=== PATIENT | female | born 1930 | race Caucasian/White ===

== ENCOUNTER 2016-12-18 11:24 | Emergency (ER) | payer MEDICARE, OTHER ==
[~2016-12-18] VITALS: Ht 170.2 cm; Wt 65.0 kg
[~2016-12-18 11:24] MED LIST: ASPI-664 PO; DEXL60CA2 PO; LORA-441 PO; MECL-77 PO; MEGE20TA6 PO; SOLI5TAB5 PO
[2016-12-18 11:36] VITALS: Ht 170.2 cm; Wt 65.0 kg
--- NOTE | 2016-12-18 11:51 | ERA ---
ER Documentation Chief Complaint Date/Time DATE: 12/18/16 TIME: 11:40 Chief Complaint RIGHT WRIST PAIN/DEFORMITY S/P FALL. HPI This is a 86-year-old female with a past medical history of vertigo, high cholesterol and chronic sciatic low back pain, on an aspirin daily who is presenting after a mechanical fall. The patient was in her home when she lost her balance. She fell forward and she did hit the top of her head against the wall. She reports that she does not feel like she hit her head very hard. Most of the impact was against her right arm and wrist. She hit the wrist against the wall and ultimately landed on an outstretched hand. She has a right distal forearm deformity. She endorses tingling to the fingertips, but her sensation is intact. She has feeling to all of her fingers. She is able to move all of her fingers, though it is painful. Her pulses intact. Her fingers are not cold or pale. The patient does not endorse any other injuries. She did feel nauseated immediately after the fall, but this has subsided. The patient did not black out before or after the fall. Patient not been sick recently. She denies any fever or chills. She denies any headache or vision changes. She does not feel dizzy or lightheaded or like the room is spinning at this time. She is not nauseated presently. She denies any neck pain. She does not have any new back pain. She reports that her lower back actually feels okay right now, while she is not moving, which is standard for her. Other than the tingling to the right hand, she denies any other weakness or numbness or tingling to the face or extremities. She is not incontinent of urine or stool. The patient does endorse chronic constipation with mild abdominal discomfort presently. She has no saddle anesthesia. ROS All systems reviewed and are negative except as per history of present illness. Medications Home Meds Reported Medications Atorvastatin Calcium* (Atorvastatin Calcium*) 20 Mg Tablet, 20 MG PO QHS, #30 TAB 12/18/16 Alendronate Sodium* (Fosamax*) 70 Mg Tablet, 70 MG PO Q7D, #4 TAB 12/18/16 Gabapentin* (Gabapentin*) 300 Mg Capsule, 300 MG PO QHS, #60 CAP 12/18/16 Cholecalciferol* (Vitamin D3*) 1,000 Unit Tablet, 1000 UNIT PO DAILY, TAB 12/18/16 Celecoxib* (Celebrex*) 200 Mg Capsule, 200 MG PO DAILY, CAP 12/18/16 Propranolol Hcl* (Propranolol Hcl*) 20 Mg Tablet, 20 MG PO DAILY, #30 12/18/16 Solifenacin* (Vesicare*) 5 Mg Tablet, 5 MG PO DAILY 08/03/13 Meclizine Hcl* (Meclizine Hcl*) 25 Mg Tablet, 25 MG PO DAILY 08/03/13 Dexlansoprazole (Dexilant) 60 Mg Cap.mp, 60 MG PO DAILY 08/03/13 Lorazepam* (Ativan*) 0.5 Mg Tablet, 0.5 MG PO DAILY 08/03/13 Megestrol Acetate* (Megestrol Acetate*) 20 Mg Tablet, 20 MG PO DAILY 08/03/13 Aspirin (Aspirin) 81 Mg Tablet., 81 MG PO DAILY 08/03/13 Allergies Allergies: Coded Allergies: No Known Allergy (Unverified , 08/03/13) PMhx/Soc History of Surgery: No Anesthesia Reaction: No Hx Neurological Disorder: No Hx Respiratory Disorders: No Hx Cardiac Disorders: Yes (HLD) Hx Psychiatric Problems: No Hx Miscellaneous Medical Probl: Yes (Vertigo, sciatic lumbar back pain, previous left wrist fracture) Hx Alcohol Use: No Hx Substance Use: No Hx Tobacco Use: No Smoking Status: Never smoker FmHx Family History: No coronary disease, No diabetes Physical Exam Vitals Vital Signs Date Time Temp Pulse Resp B/P Pulse Ox O2 Delivery O2 Flow Rate FiO2 12/18/16 15:47 98.0 76 17 135/69 100 Room Air 12/18/16 13:00 78 16 128/63 98 Room Air 12/18/16 11:36 97.7 70 19 121/65 99 Physical Exam Const: Thin but well nourished, Well developed Head: Atraumatic Eyes: Normal Conjunctiva ENT: Normal External Ears, Nose. dry mucous membranes. Neck: Full range of motion..~ No meningismus. Resp: Clear to auscultation bilaterally Cardio: Regular rate and rhythm, no murmurs Abd: Soft, non tender, non distended. generalized mild abdominal discomfort, chronic, unchanged from baseline. Normal bowel sounds Skin: No petechiae or rashes Back: No midline or flank tenderness Ext: No cyanosis, or edema. Distal right forearm deformity. Strong distal radial pulses. Capillary refill <2s in both hands. Limited ROM to right wrist 2/ 2 pain. able to move all fingers. sensation intact to light touch and two-point discrimination. Neur: Awake and alert, neurovascularly intact Psych: Normal Mood and Affect Results 24 hrs Current Medications Medications (Trade) Dose Ordered Sig/Damian Route PRN Reason Start Time Stop Time Status Last Admin Dose Admin Lidocaine (Xylocaine 1% (Mdv) 20 ml) 20 ml ONCE ONCE SC 12/18/16 13:00 12/18/16 13:01 DC Lidocaine (Xylocaine 1% (Mdv) 20 ml) 20 ml STK-MED ONCE .ROUTE 12/18/16 13:01 12/18/16 13:02 DC Fentanyl (Sublimaze) 50 mcg ONCE ONCE IV 12/18/16 13:30 12/18/16 13:31 DC 12/18/16 13:35 Fentanyl (Sublimaze) 100 mcg STK-MED ONCE .ROUTE 12/18/16 13:10 12/18/16 13:11 DC Fentanyl (Sublimaze) 50 mcg ONCE ONCE IV 12/18/16 15:00 12/18/16 15:01 DC 12/18/16 15:09 Procedures/MDM The patient presents after a mechanical fall. The patient did report hitting her head, but it was minimal with no loss of consciousness. CT scan was completed of the head that did not reveal any acute posttraumatic intracranial hemorrhage. She had an obvious right wrist deformity with concerns of a fracture. The initial x-rays demonstrated the following as read by the radiologist: FINDINGS: Comminuted, impacted, mildly angulated fracture through the distal radial metaphysis is observed. The remaining osseous structures appear intact. Diffuse osteopenia is seen. No destructive bony lesions are identified. Mild narrowing of the first carpal metacarpal joint is seen. Soft tissue swelling is seen surrounding the wrist. IMPRESSION: Distal radius fracture. Osteopenia. 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 If there is high clinical suspicion for additional traumatic injury, further evaluation with CT should be considered. Electronically viewed and signed by .Ricky Peters MD, on 12/18/2016 13:03 The patient was neurovascularly intact distal to the fracture, which is reassuring. A hematoma block was completed at the fracture site. The fracture was then reduced using extension then flexion of the joint. The joint was splinted under my direct supervision. Postreduction films demonstrated improved alignment. However, the fracture was re-reduced for better approximation. Postreduction films again demonstrated stable alignment The patient did require 50 ug of fentanyl twice. She tolerated the procedure without any immediate complications. The patient was neurovascularly intact post reduction and splinting. This time, the patient is stable for discharge. She was given a sling. The patient needs to follow-up with an orthopedic surgeon. She should also follow- up with her primary care doctor. The patient intends to call both in the morning to schedule an appointment. Departure Diagnosis: Primary Impression: Distal radius fracture, right Qualified Code: S52.531A - Closed Colles' fracture of right radius, initial encounter Additional Impression: Head injury Qualified Code: S09.90XA - Injury of head, initial encounter Condition: Stable ÁNGEL ROLON MD Dec 18, 2016 11:50
--- NOTE | 2016-12-18 12:14 | RADRPT ---
PROCEDURE: CT Brain without contrast. CLINICAL INDICATION: Fall. Head trauma and headache. TECHNIQUE: A multiplanar CT of the brain was performed on a CT scanner utilizing axial imaging fro m the skull base through the vertex without IV contrast. The CTDIvol is 42.56 mGy and the DLP is 72 0.23 mGycm. One or more of the following dose reduction techniques were utilized: Automated exposu re control, adjustment of the mA and/or kV according to patient size, use of iterative reconstructio n technique. COMPARISON: None FINDINGS: No evidence of intracranial hemorrhage or abnormal extra-axial fluid collection. Moderate patchy and confluent periventricular and subcortical white matter low attenuation compatibl e with sequelae of chronic microvascular ischemic injury. The brain parenchyma is otherwise normal a ttenuation and morphology with preservation of barr white differentiation.The ventricles and subarac hnoid spaces are prominent compatible with mild cerebral volume loss. Atherosclerotic calcification of the internal carotid and vertebral arteries. The basal cisterns, posterior fossa contents, brainstem, craniocervical junction, orbits, pituitary axis, paranasal sinuses, mastoid air cells, and calvarium are unremarkable. IMPRESSION: 1. No intracranial hemorrhage or acute intracranial abnormality. 2. Moderate chronic microvascular ischemic changes and mild cerebral volume loss. 3. Atherosclerotic calcification of the internal carotid and vertebral arteries. RPTAT:AAJJ Physician Rocio Date Time Electronically viewed and signed by Physician Rocio on 12/18/2016 12:13 ARLENE/
[2016-12-18] MEDS ORDERED: LIDOCAINE 1% (MDV) 20 ML INJ SC ONE (13:00)
[2016-12-18] MEDS ORDERED: LIDOCAINE 1% (MDV) 20 ML INJ ONE (13:01)
--- NOTE | 2016-12-18 13:03 | RADRPT ---
PROCEDURE: XR Wrist 3 Views. CLINICAL INDICATION: Right wrist pain and trauma. TECHNIQUE: AP, oblique and lateral views of the right wrist were performed. COMPARISON: No prior studies are available for comparison. FINDINGS: Comminuted, impacted, mildly angulated fracture through the distal radial metaphysis is observed. Th e remaining osseous structures appear intact. Diffuse osteopenia is seen. No destructive bony lesio ns are identified. Mild narrowing of the first carpal metacarpal joint is seen. Soft tissue swelli ng is seen surrounding the wrist. IMPRESSION: Distal radius fracture. Osteopenia. 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 If there is high clinical suspicion for additional traumatic injury, further evaluation with CT shou ld be considered. RPTAT: AA .Ricky Peters MD, Date Time Electronically viewed and signed by .Ricky Peters MD, on 12/18/2016 13:03 .P/
--- NOTE | 2016-12-18 13:05 | RADRPT ---
PROCEDURE: XR Forearm 2 Views. CLINICAL INDICATION: Right arm pain and trauma. TECHNIQUE: AP and lateral views of the right forearm were obtained. COMPARISON: No prior studies are available for comparison. FINDINGS: Comminuted, impacted, moderately angulated fracture through the distal radial metaphysis is identifi ed. The remaining osseous structures appear intact. No destructive bony lesions are identified. Int erosseous spaces appear preserved. The soft tissues are unremarkable. IMPRESSION: Distal radius fracture. Osteopenia. If there is high clinical suspicion for additional traumatic injury, further evaluation with CT shou ld be considered. RPTAT: AA .Ricky Peters MD, Date Time Electronically viewed and signed by .Ricky Peters MD, on 12/18/2016 13:04 .P/
[2016-12-18] MEDS ORDERED: FENTAnyl 50 MCG/ML VIAL ONE (13:10)
[2016-12-18] MEDS ORDERED: FENTAnyl 50 MCG/ML VIAL IV ONE ×2 (13:30→15:00)
[2016-12-18] MEDS ORDERED: PROP20TA4 PO (14:15)
[2016-12-18] MEDS ORDERED: CELE200C PO (14:15)
[2016-12-18] MEDS ORDERED: CHOL100062 PO (14:15)
[2016-12-18] MEDS ORDERED: GABA300C16 PO (14:16)
[2016-12-18] MEDS ORDERED: ALEN70TA30 PO (14:17)
[2016-12-18] MEDS ORDERED: ATOR20TA38 PO (14:18)
--- NOTE | 2016-12-18 14:41 | RADRPT ---
PROCEDURE: XR Wrist. CLINICAL INDICATION: Pain. Post reduction. TECHNIQUE: AP, lateral and oblique views of the right wrist were performed. COMPARISON: December 18, 2016 FINDINGS: There has been successful reduction in an impacted, intra-articular, comminuted, distal radial fract ure. Alignment is near anatomic. No additional fractures are identified. A splint is in place. Osteopenia is again noted. IMPRESSION: Successful reduction of an impacted, intra-articular, comminuted, distal radial fracture. Anatomic a lignment. Osteopenia. RPTAT: QQ. .Melanie Bell MD, Date Time Electronically viewed and signed by .Melanie Bell MD, on 12/18/2016 14:41 .F/
--- NOTE | 2016-12-18 15:33 | RADRPT ---
PROCEDURE: XR Wrist. CLINICAL INDICATION: Postreduction image. TECHNIQUE: AP, lateral and oblique views of the right wrist were performed. COMPARISON: Right wrist 12/18/2016 01:45 p.m. FINDINGS: Stable position and alignment of the transverse impacted fracture to the distal metaphysis of the ri ght radius since the prior study. A fiberglass splint remains in place. The other bony elements are unremarkable. IMPRESSION: 1. Stable position and alignment of the transverse impacted fracture to the distal metaphysis of the right radius as compared to 12/18/2016. RPTAT:AAJJ Physician Christiana Date Time Electronically viewed and signed by Physician Christiana on 12/18/2016 15:33 REMIGIO/
[2016-12-18 15:47] VITALS: BP 135/69; PULSE 76; RESP 17; TEMP 98
== END 2016-12-18 16:10 | disposition home or self-care (01) ==
LOC: E/R 11:24
DX: S52.531A Colles' fracture of right radius, initial encounter for closed fracture (principal); S09.90XA Unspecified injury of head, initial encounter; R42 Dizziness and giddiness; W22.01XA Walked into wall, initial encounter; Y92.9 Unspecified place or not applicable; Z79.82 Long term (current) use of aspirin
CPT/HCPCS: 70450; 73090; 73110; 96374; 96376; 99285; J3010